=== PATIENT | female | born 1990 | race Two or more races ===

== ENCOUNTER 2024-01-16 07:41 | Emergency (ER) | payer MEDICAID ==
[~2024-01-16] VITALS: Ht 160 cm; Wt 95.0 kg
[2024-01-16 07:48] VITALS: TEMP 97.6
[2024-01-16 09:00] VITALS: BP 110/60; PULSE 84; RESP 14
== END 2024-01-16 09:34 | disposition home or self-care (01) ==
LOC: EMS 07:41
DX: O26.893 Other specified pregnancy related conditions, third trimester (principal); Z98.890 Other specified postprocedural states; Z3A.34 34 weeks gestation of pregnancy
CPT/HCPCS: 76805; 99284; Z7502